=== PATIENT | male | born 1975 | race Two or more races ===

== ENCOUNTER 2019-12-06 17:47 | Emergency (ER) | payer MEDICAID, OTHER ==
[~2019-12-06] VITALS: Ht 157.5 cm; Wt 107.5 kg
[2019-12-06 17:54] VITALS: BP 174/86
[2019-12-06] MEDS ORDERED: KETOROLAC 60 MG/2 ML VIAL IM ONE (18:50)
[2019-12-06 19:09] VITALS: BP 177/105
== END 2019-12-06 19:09 | disposition home or self-care (01) ==
LOC: MED 17:47
DX: S09.8XXA Other specified injuries of head, initial encounter (principal); W22.8XXA Striking against or struck by other objects, initial encounter; Y93.89 Activity, other specified; Y92.89 Other specified places as the place of occurrence of the external cause; Y99.8 Other external cause status
CPT/HCPCS: 70450; 96372; 99284; J1885

== ENCOUNTER 2021-04-10 05:44 | Emergency (ER) | payer MEDICAID ==
[~2021-04-10] VITALS: Ht 165.1 cm; Wt 102.5 kg
[2021-04-10 05:52] VITALS: BP 180/91
--- NOTE | 2021-04-10 05:56 | NUR ---
PATIENT AMBULATED TO RESTROOM WITH STEADY GAIT.
--- NOTE | 2021-04-10 05:59 | NUR ---
PT TAKEN TO BED 8
[2021-04-10] MEDS ORDERED: MORPHINE SULFATE 4 MG/ML SYR IVP ONE (06:00)
[2021-04-10] MEDS ORDERED: NACL 0.9% 500 ML IV ONE (06:00)
[2021-04-10] MEDS ORDERED: ONDANSETRON 4 MG/2 ML VIAL IVP ONE (06:00)
[2021-04-10 06:11] LABS: BASOPHILS % (AUTO) 0.4 % (0.0-2.0); EOSINOPHILS # (AUTO) 0.3 K/uL (0-0.4); EOSINOPHILS % (AUTO) 3.5 % (0.0-4.0); HEMATOCRIT 44.3 % (36-52); HEMOGLOBIN 14.7 g/dL (12.0-18.0); LYMPHOCYTES # (AUTO) 2.3 K/uL (2.0-11.5); LYMPHOCYTES % (AUTO) 27.8 % (20.5-51.1); MEAN CORPUSCULAR HEMOGLOBIN 28 pg (27-31); MEAN CORPUSCULAR HGB CONC 33 g/dL (33-37); MEAN CORPUSCULAR VOLUME 85.3 fL (80-94); MONOCYTES # (AUTO) 0.4 K/uL (0.8-1.0); MONOCYTES % (AUTO) 4.4 % (1.7-9.3); NEUTROPHILS # (AUTO) 5.4 K/uL (1.8-7.7); NEUTROPHILS % (AUTO) 63.9 % (42.2-75.2); PLATELET COUNT (AUTO) 239 K/uL (140-450); RED CELL DISTRIBUTION WIDTH 13.7 % (11.6-13.7); WHITE BLOOD COUNT (AUTO) 8.5 K/uL (4.8-10.8)
[2021-04-10 06:25] LABS: ALBUMIN 4.3 g/dL (3.4-5.0); ANION GAP 14.4 (8-16); CREATININE 0.9 mg/dL (0.6-1.3); POTASSIUM 3.4 mmol/L (3.5-5.1); TOTAL BILIRUBIN 0.5 mg/dL (0.0-1.0)
--- NOTE | 2021-04-10 06:30 | NUR ---
PAITENT BIB SELF FOR C/O RLQ ABDOMINAL PAIN X 2 HOURS. 10/10 PAIN SHARP AND EXPLODING THAT IS CONSTANT. PATIENT ADMITS TO N/VX4. PALPATION OF ABDOMEN PATIENT WITHDRAWS AND WINCES. PATIENT REPORTS TAKING IBUPROFEN WITH NO RELIEF. AAOX4. VSS. AFEBRILE. PMH: HTN NKA
--- NOTE | 2021-04-10 07:22 | NUR ---
Pt report given to RYAN Granado. Transfer of care at this time.
--- NOTE | 2021-04-10 08:00 | NUR ---
PT ALERT AND AWAKE, BREATHING EVEN AND UNLABORED. NO DISTRESS NOTED. WILL CONTINUE TO MONITOR.
[2021-04-10] MEDS ORDERED: TAMS0.4C96 PO (08:17)
[2021-04-10] MEDS ORDERED: IBUP-2213 PO (08:17)
[2021-04-10] MEDS ORDERED: ACET-8386 PO (08:17)
--- NOTE | 2021-04-10 09:00 | NUR ---
Patient discharged with v/s stable. Written and verbal after care instructions about kidney stones given and explained. Patient alert, oriented and verbalized understanding of instructions. Ambulatory with steady gait. All questions addressed prior to discharge. ID band removed. Patient advised to follow up with PMD. Rx of flomax, ibuprofen, norco given. Patient educated on indication of medication including possible reaction and side effects. Opportunity to ask questions provided and answered.
[2021-04-10 09:03] VITALS: BP 171/90
[2021-04-10 10:08] LABS: APPEARANCE,URINE CLOUDY (CLEAR); BILIRUBIN,URINE NEGATIVE (NEGATIVE); BLOOD, URINE 3+ (NEGATIVE); COLOR,URINE YELLOW (YELLOW); LEUKOCYTE ESTERASE ,URINE NEGATIVE (NEGATIVE); NITRITE, URINE NEGATIVE (NEGATIVE); UGLUCOSE NEGATIVE (NEGATIVE)
[2021-04-10 10:35] LABS: RBC,URINE >100 /HPF (0-5); WBC,URINE 0-5 /HPF (0-5)
== END 2021-04-10 09:00 | disposition home or self-care (01) ==
LOC: MED 05:44
DX: N20.0 Calculus of kidney (principal); R11.10 Vomiting, unspecified; I10 Essential (primary) hypertension; Z79.899 Other long term (current) drug therapy
CPT/HCPCS: 36415; 74177; 80053; 81001; 83690; 85025; 96361; 96374; 96375; 99285; J2270; J2405; Q9967; J7030